=== PATIENT | male | born 1960 | race Caucasian/White ===

== ENCOUNTER → 2017-04-26 | Outpatient (CLI) | payer OTHER ==
[~2017-04-26] MED LIST: ALPR0.254 PO; ASPI-630 PO; BETA15CR5 TP; CYCL10TA2 PO; HYDR-2762 PO; LEVO25TA4 PO; LISI40TA PO; NAPR-695 PO; RANI150T2 PO; SILD100T PO; TEST200V3 IM
[2017-04-26 14:33] LABS: BASO % 1 % (0-3); EOS % 2 % (0-3); HEMATOCRIT 55.7 % (39.0-53.0); HEMOGLOBIN 19.2 g/dL (13.0-17.5); LYMPH # 1.6 x10^3/uL (1.0-4.8); LYMPH % 22 % (24-48); MEAN CORPUSCULAR HEMOGLOBIN 30 pg (25-35); MEAN CORPUSCULAR HGB CONC 34 g/dL (31-37); MEAN CORPUSCULAR VOLUME 87 fL (79-100); MONO % 8 % (0-9); NEUT % 68 % (31-73); PLATELET COUNT 207 x10^3/uL (140-400); RED BLOOD COUNT 6.38 x10^6/uL (4.30-5.70); RED CELL DISTRIBUTION WIDTH 14.1 % (11.5-14.5); WHITE BLOOD COUNT 7.4 x10^3/uL (4.0-11.0)
--- NOTE | 2017-04-26 14:40 | EKG ---
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
[2017-04-26 14:44] LABS: PROTHROMBIN TIME PATIENT 12.9 SEC (11.7-14.0)
[2017-04-26 14:56] LABS: ALBUMIN 4.1 g/dL (3.4-5.0); CALCIUM 9.1 mg/dL (8.5-10.1); CREATININE 1.2 mg/dL (0.7-1.3); GFR 63.1; POTASSIUM 4.1 mmol/L (3.5-5.1)
--- NOTE | 2017-04-26 15:46 | RAD ---
Indication: Rotator cuff repair scheduled. Clearance. Technique: Two-view chest radiograph was obtained. No comparison is available. Findings: The lungs are clear. The cardiopulmonary silhouette is within normal limits. There is no pleural effusion. There are degenerative changes in the spine. Impression: No acute thoracic findings.
[2017-04-26 16:15] LABS: BILIRUBIN,URINE NEGATIVE (NEG); GLUCOSE,URINE NEGATIVE (NEG); NITRITE,URINE NEGATIVE (NEG); PH,URINE 5.5; PROTEIN,URINE NEGATIVE (NEG-TRACE)
[2017-04-26 16:26] LABS: SQUAMOUS EPITHELIAL CELL,UR FEW /LPF
[2017-04-26 16:27] LABS: BACTERIA,URINE FEW /HPF (0-FEW); RBC,URINE 0 /HPF (0-2)
== END | disposition home or self-care (01) ==
LOC: SURGPAT 13:28
PROVIDERS: ATTEND Orthopaedic Surgery
DX: Z01.818 Encounter for other preprocedural examination (principal); I10 Essential (primary) hypertension; M75.122 Complete rotator cuff tear or rupture of left shoulder, not specified as traumatic
CPT/HCPCS: 36415; 71020; 80048; 81001; 82040; 85025; 85610; 85651; 85730; 87086; 87641; 93005

== ENCOUNTER → 2018-05-25 | Outpatient (CLI) | payer OTHER ==
[2017-05-11 18:59] VITALS: BP 118/75
[~2018-05-25] MED LIST changes: +LISI-130 PO; -LISI40TA PO; +OXYC-327 PO
--- NOTE | 2018-05-25 16:22 | RAD ---
MR of the right shoulder Indication: Right shoulder pain with limited range of motion, no prior exam. Technique: Standard multiplanar sequences are obtained. Findings: Artifact: Moderate motion degradation. Acromioclavicular joint: Mildly degenerative. Rotator cuff: * Supraspinatus-infraspinatus tendon: Thickened and is compatible with tendinosis. Partial-thickness undersurface tear of the supraspinatus tendon. There may be some slight full-thickness involvement at its anterior edge, difficult to characterize bursal surface due to the motion, but no substantial retraction. * Subscapularis tendon: Tendinosis with partial tear. * Muscle bulk: Very mild atrophy. * Subacromial subdeltoid bursa: Trace effusion. Fluid: No significant glenohumeral effusion. Glenohumeral cartilage: No acute defect or advanced DJD. Labrum: Limited evaluation, due to the motion degradation. No definite acute detachment. Biceps tendon: Intact Bones: No lesion or acute fracture. Soft tissue: No acute findings. Impression: 1. Moderate motion degradation. 2. Rotator cuff tendinosis. Partial supraspinatus tendon tear, with a possible full-thickness component anteriorly. Subscapularis tendon partial tear. Electronically signed by: Junaid Fuentes MD (05/25/2018 4:19 PM) [facility]
== END | disposition home or self-care (01) ==
LOC: MRI 14:25
PROVIDERS: ATTEND Nurse Practitioner Family
DX: M75.101 Unspecified rotator cuff tear or rupture of right shoulder, not specified as traumatic (principal); M62.511 Muscle wasting and atrophy, not elsewhere classified, right shoulder
CPT/HCPCS: 73221